=== PATIENT | male | born 1975 | race Caucasian/White ===

== ENCOUNTER 2018-01-11 05:15 | Observation (INO) | payer MEDICAID ==
[~2018-01-11] VITALS: Ht 180.3 cm; Wt 87.0 kg
[2018-01-11 06:19] LABS: BASOPHILS # (AUTO) 0.03 x10^3/uL (0-0.1); BASOPHILS % (AUTO) 0 % (0-1); EOSINOPHILS # (AUTO) 0.13 x10^3/uL (0-0.4); EOSINOPHILS % (AUTO) 2 % (1-7); LYMPHOCYTES # (AUTO) 2.11 x10^3/uL (1-3.4); LYMPHOCYTES % (AUTO) 24 % (22-44); MD NO; MEAN CORPUSCULAR HEMOGLOBIN 26.8 pg (27.5-34.5); MEAN CORPUSCULAR HGB CONC 32.8 g/dL (33.2-36.2); MEAN CORPUSCULAR VOLUME 81.7 fL (81-97); MEAN PLATELET VOLUME 6.5 fL (7.4-10.4); MONOCYTES # (AUTO) 0.83 x10^3/uL (0.2-0.8); MONOCYTES % (AUTO) 10 % (2-9); NEUTROPHILS # (AUTO) 5.56 x10^3/uL (1.8-6.8); NEUTROPHILS % (AUTO) 64 % (42-75); PLATELET COUNT 445 x10^3/uL (130-400); RED BLOOD COUNT 4.99 x10^6/uL (4.38-5.82); RED CELL DISTRIBUTION WIDTH 15.7 % (9.4-14.8)
[2018-01-11 06:30] LABS: ALBUMIN 3.7 g/dL (3.4-5.0); ANION GAP 7 mmol/L (5-15); CHLORIDE 108 mmol/L (98-107)
[2018-01-11 06:34] LABS: ALANINE AMINOTRANSFERASE 37 U/L (12-78); ALKALINE PHOSPHATASE 99 U/L (45-117); BILIRUBIN,TOTAL 0.5 mg/dL (0.2-1.0); CREATININE 1.07 mg/dL (0.7-1.3); TOTAL PROTEIN 7.9 g/dL (6.4-8.2)
[2018-01-11 06:36] LABS: SALICYLATE LEVEL < 1.7 mg/dL (2.8-20.0)
[2018-01-11 06:37] LABS: ACETAMINOPHEN < 2 mcg/mL (10-30)
[2018-01-11 10:43] LABS: MICROSCOPIC NOT IND
[2018-01-11 10:46] LABS: CULTURE INDICATED? NO
[2018-01-11 10:54] LABS: AMPHETAMINE SCREEN, URINE Positive (Negative); BARBITURATE SCREEN, URINE Negative (Negative); BENZODIAZEPINE SCREEN, URINE Negative (Negative); CANNABINOID SCREEN, URINE Positive (Negative); COCAINE SCREEN, URINE Negative (Negative); METHADONE SCREEN, URINE Negative (Negative); OPIATE SCREEN, URINE Negative (Negative)
[2018-01-11] MEDS ORDERED: ACETAMINOPHEN 325 MG TABLET PO PRN (11:30)
[2018-01-11] MEDS ORDERED: HALOPERIDOL 1 MG TABLET PO PRN (11:30)
[2018-01-11] MEDS ORDERED: BISACODYL 10 MG SUPP PR PRN (11:30)
[2018-01-11] MEDS ORDERED: DOCUSATE 100 MG CAPSULE PO PRN (11:30)
[2018-01-11] MEDS ORDERED: ZIPRASIDONE 20 MG INJ IM PRN (11:30)
[2018-01-11] MEDS ORDERED: TRAZODONE 50MG TABLET PO PRN (11:30)
[2018-01-11] MEDS ORDERED: ONDANSETRON ODT 4 MG PO PRN (11:30)
[2018-01-11] MEDS ORDERED: HALOPERIDOL 5 MG TABLET PO PRN (12:30)
[2018-01-11] MEDS ORDERED: LORazepam 1MG TABLET PO ONE (20:00)
[2018-01-11 20:01] VITALS: BP 128/84
[2018-01-12 08:27] VITALS: BP 130/70
[2018-01-12] MEDS: SENNA/DOCUSATE TABLET PO SCH (09:00)
[2018-01-12] MEDS ORDERED: PLEASE ENTER ALLERGIES MC SCH (13:30)
[2018-01-12] MEDS: BACLOFEN 10 MG TABLET PO SCH (20:26)
[2018-01-12 20:27] VITALS: BP 117/75
[2018-01-13] MEDS: BACLOFEN 10 MG TABLET PO SCH ×2 (08:00→19:56)
[2018-01-13 08:11] LABS: ANION GAP 6 mmol/L (5-15); CALCIUM 8.9 mg/dL (8.5-10.1); CHLORIDE 107 mmol/L (98-107); CREATININE 0.97 mg/dL (0.7-1.3)
[2018-01-13 08:14] VITALS: BP 125/86
[2018-01-13] MEDS: SENNA/DOCUSATE TABLET PO SCH (08:30)
[2018-01-13 19:44] VITALS: BP 127/88
[2018-01-14 07:49] VITALS: BP 143/89
[2018-01-14] MEDS: SENNA/DOCUSATE TABLET PO SCH (08:25)
[2018-01-14] MEDS: BACLOFEN 10 MG TABLET PO SCH ×2 (08:25→20:09)
[2018-01-14 19:53] VITALS: BP 134/81
[2018-01-15 08:12] VITALS: BP 95/60
[2018-01-15] MEDS: BACLOFEN 10 MG TABLET PO SCH ×2 (08:49→20:19)
[2018-01-15] MEDS: SENNA/DOCUSATE TABLET PO SCH (08:49)
[2018-01-15] MEDS: LORazepam 0.5MG TABLET PO PRN ×2 (17:16→17:18)
[2018-01-15 19:40] VITALS: BP 144/79
[2018-01-16] MEDS: BACLOFEN 10 MG TABLET PO SCH ×2 (07:45→20:32)
[2018-01-16] MEDS: SENNA/DOCUSATE TABLET PO SCH (07:50)
[2018-01-16 07:57] VITALS: BP 127/81
[2018-01-16] MEDS ORDERED: ZIPRASIDONE 20 MG INJ IM PRN (15:30)
[2018-01-16 20:57] VITALS: BP 130/89
[2018-01-17] MEDS: BACLOFEN 10 MG TABLET PO SCH ×2 (08:52→20:57)
[2018-01-17] MEDS: SENNA/DOCUSATE TABLET PO SCH (08:56)
[2018-01-17 16:00] VITALS: BP 129/86
[2018-01-17 20:54] VITALS: BP 110/77
[2018-01-18 07:30] VITALS: BP 147/92
[2018-01-18] MEDS: BACLOFEN 10 MG TABLET PO SCH ×2 (08:27→20:12)
[2018-01-18] MEDS: SENNA/DOCUSATE TABLET PO SCH (08:38)
[2018-01-18] MEDS ORDERED: TRAZODONE 50MG TABLET PO PRN (14:30)
[2018-01-18] MEDS ORDERED: LITHIUM CARBONATE 150 MG CAPSULE PO ONE (17:00)
[2018-01-18] MEDS ORDERED: LITHIUM CARBONATE 150 MG CAPSULE PO SCH (17:00)
[2018-01-18 19:45] VITALS: BP 126/79
[2018-01-19 07:30] VITALS: BP 142/98
[2018-01-19] MEDS: BACLOFEN 10 MG TABLET PO SCH ×2 (08:38→22:06)
[2018-01-19] MEDS: LITHIUM CARBONATE 300 MG TABLET.ER PO SCH ×3 (09:00→22:06)
[2018-01-19] MEDS: SENNA/DOCUSATE TABLET PO SCH (09:00)
[2018-01-19] MEDS ORDERED: ZIPRASIDONE 20 MG INJ IM ONE ×2 (13:29→13:30)
[2018-01-19 22:01] VITALS: BP 124/68
[2018-01-20 07:42] VITALS: BP 128/78
[2018-01-20] MEDS: SENNA/DOCUSATE TABLET PO SCH (09:06)
[2018-01-20] MEDS: LITHIUM CARBONATE 300 MG TABLET.ER PO SCH (09:08)
[2018-01-20] MEDS: BACLOFEN 10 MG TABLET PO SCH (09:12)
== END 2018-01-20 13:15 ==
LOC: ED 08:38 → EDIP 10:22 → 3E 16:51
PROVIDERS: ADMIT Hospitalist; ATTEND Hospitalist
DX: R45.851 Suicidal ideations (principal); F31.9 Bipolar disorder, unspecified; F20.9 Schizophrenia, unspecified; F12.10 Cannabis abuse, uncomplicated; E87.6 Hypokalemia; F15.90 Other stimulant use, unspecified, uncomplicated; D64.9 Anemia, unspecified; Z81.8 Family history of other mental and behavioral disorders
CPT/HCPCS: 36415; 80048; 80053; 80307; 80329; 81003; 85025; 93005; 96372; 99285; G0378; J3486; G0480

== ENCOUNTER 2018-01-25 06:06 | Emergency (ER) | payer MEDICAID ==
[~2018-01-25] VITALS: Ht 180.3 cm; Wt 90.3 kg
[2018-01-25 06:09] VITALS: BP 128/82
[2018-01-25 07:00] LABS: BASOPHILS # (AUTO) 0.03 x10^3/uL (0-0.1); BASOPHILS % (AUTO) 0 % (0-1); EOSINOPHILS # (AUTO) 0.06 x10^3/uL (0-0.4); EOSINOPHILS % (AUTO) 1 % (1-7); LYMPHOCYTES # (AUTO) 1.53 x10^3/uL (1-3.4); LYMPHOCYTES % (AUTO) 13 % (22-44); MD NO; MEAN CORPUSCULAR HGB CONC 33.4 g/dL (33.2-36.2); MEAN CORPUSCULAR VOLUME 80.7 fL (81-97); MEAN PLATELET VOLUME 6.5 fL (7.4-10.4); MONOCYTES # (AUTO) 1.01 x10^3/uL (0.2-0.8); MONOCYTES % (AUTO) 9 % (2-9); NEUTROPHILS # (AUTO) 8.89 x10^3/uL (1.8-6.8); NEUTROPHILS % (AUTO) 77 % (42-75); PLATELET COUNT 327 x10^3/uL (130-400); RED BLOOD COUNT 5.11 x10^6/uL (4.38-5.82); RED CELL DISTRIBUTION WIDTH 16.2 % (9.4-14.8)
== END 2018-01-25 08:28 | disposition home or self-care (01) ==
LOC: ED 07:40
DX: L03.116 Cellulitis of left lower limb (principal); B35.3 Tinea pedis; F17.210 Nicotine dependence, cigarettes, uncomplicated
CPT/HCPCS: 36415; 85025; 99285

== ENCOUNTER 2018-01-25 20:02 | Emergency (ER) | payer MEDICAID ==
[~2018-01-25] VITALS: Ht 180.3 cm; Wt 93.5 kg
[2018-01-25 20:04] VITALS: BP 153/97
== END 2018-01-25 20:52 | disposition home or self-care (01) ==
LOC: ED 20:45
DX: F15.10 Other stimulant abuse, uncomplicated (principal)
CPT/HCPCS: 99281

== ENCOUNTER 2019-01-21 05:07 | Emergency (ER) | payer MEDICAID ==
[~2019-01-21] VITALS: Ht 180.3 cm; Wt 92.8 kg
[2019-01-21 05:09] VITALS: BP 137/97
[2019-01-21] MEDS ORDERED: OLAN10TA3 PO (05:15)
[2019-01-21] MEDS ORDERED: BUPR-86 PO (05:15)
[2019-01-21] MEDS ORDERED: BUPR150T73 PO (05:15)
[2019-01-21] MEDS ORDERED: QUET300T5 PO (05:15)
[2019-01-21] MEDS ORDERED: LORazepam 1MG TABLET PO ONE (06:00)
[2019-01-21] MEDS ORDERED: LORazepam 1MG TABLET ONE (06:24)
[2019-01-21] MEDS ORDERED: OLANZAPINE 5 MG TABLET ONE (06:25)
[2019-01-21] MEDS ORDERED: OLANZAPINE 5 MG TABLET PO ONE (09:00)
== END 2019-01-21 06:35 | disposition home or self-care (01) ==
LOC: ED 06:25
DX: F31.9 Bipolar disorder, unspecified (principal)
CPT/HCPCS: 99283; 99284

== ENCOUNTER 2019-01-24 08:28 | Emergency (ER) | payer MEDICAID ==
[~2019-01-24] VITALS: Ht 180.3 cm; Wt 95.8 kg
[~2019-01-24 08:28] MED LIST: BUPR-86 PO; BUPR150T73 PO; OLAN10TA3 PO; QUET300T5 PO
[2019-01-24 08:34] VITALS: BP 141/79
--- NOTE | 2019-01-24 08:40 | NUR ---
PT REPORTED HE WAS GOING HURT SOMEONE BECAME VERBALLY AND PHYSICALY AGGRESSIVE IN TRIAGE SECURITY CALLED WHEN SECURITY ARRIVED PT GOT UP OUT OF THE CHAIR AND WALKED OUT SECURITY FOLLOWED PT OUT
== END 2019-01-24 08:54 | disposition left against medical advice (07) ==
LOC: ED 08:45
DX: Z53.21 Procedure and treatment not carried out due to patient leaving prior to being seen by health care provider (principal)

== ENCOUNTER 2019-01-26 19:42 | Emergency (ER) | payer MEDICAID ==
[~2019-01-26] VITALS: Ht 180.3 cm; Wt 90.0 kg
--- NOTE | 2019-01-26 19:58 | NUR ---
BIB [facility] FROM [facility] FOR DEPRESSION, ANXIETY, AND SUICIDAL THOUGHTS WITH NO PLAN. PT HAS HX OF BIPOLAR, CHF, DEPRESSION, SCHIZOPHRENIA. PT DOES NOT TAKE MEDICATIONS PRESCRIBED OF SEROQUEL, WELLBUTRIN, ZYPREXA. UPON ARRIVAL TO ROOM PHYSICIAN AT BEDSIDE AND UPON ASSESSMENT NOTICES BED BUG CRAWLING ON PTS BACK. PTS BELONGINGS PLACED IN BIOHAZARD BAG AND PT SENT TO SHOWER FOR DECON.
[2019-01-26 20:25] LABS: ALANINE AMINOTRANSFERASE 28 U/L (12-78); ALBUMIN 4.2 g/dL (3.4-5.0); ANION GAP 9 mmol/L (5-15); CALCIUM 9.6 mg/dL (8.5-10.1); CHLORIDE 107 mmol/L (98-107)
[2019-01-26 20:27] LABS: ACETAMINOPHEN < 2 mcg/mL (10-30); ALKALINE PHOSPHATASE 103 U/L (45-117); BASOPHILS # (AUTO) 0.03 x10^3/uL (0-0.1); BASOPHILS % (AUTO) 1 % (0-1); BILIRUBIN,TOTAL 0.2 mg/dL (0.2-1.0); EOSINOPHILS # (AUTO) 0.09 x10^3/uL (0-0.4); EOSINOPHILS % (AUTO) 2 % (1-7); LYMPHOCYTES # (AUTO) 1.73 x10^3/uL (1-3.4); LYMPHOCYTES % (AUTO) 29 % (22-44); MD NO; MEAN CORPUSCULAR HEMOGLOBIN 27.3 pg (27.5-34.5); MEAN CORPUSCULAR HGB CONC 32.9 g/dL (33.2-36.2); MEAN CORPUSCULAR VOLUME 82.9 fL (81-97); MEAN PLATELET VOLUME 7.2 fL (7.4-10.4); MONOCYTES # (AUTO) 0.77 x10^3/uL (0.2-0.8); MONOCYTES % (AUTO) 13 % (2-9); NEUTROPHILS % (AUTO) 56 % (42-75); PLATELET COUNT 386 x10^3/uL (130-400); RED CELL DISTRIBUTION WIDTH 15.4 % (9.4-14.8); SALICYLATE LEVEL < 1.7 mg/dL (2.8-20.0); TOTAL PROTEIN 8.6 g/dL (6.4-8.2)
--- NOTE | 2019-01-26 20:35 | NUR ---
PT HAS 1 BIOHAZARD BAG IN THE ROOM WITH BELONGINGS INSIDE.
--- NOTE | 2019-01-26 21:10 | NUR ---
SOC PAGED FOR PSYCH CONSULT
--- NOTE | 2019-01-26 21:11 | NUR ---
WHEN ASKING PT SUICIDE EVALUATION QUESTIONS PT STATES " HE HAS A BAD PAST OF DRUG ABUSE AND HAS BEEN IN PENITENTIARY AND IS TRYING TO GET INTO MINISTRY TO SHOW HIS KIDS HE HAS TURNED HIS LIFE AROUND BUT ITS HARD. I DON'T TAKE MY MEDS BECAUSE I HAVE A [place] ID AND I CAN'T GET MY MEDICATIONS HERE IN [place]. PT ADMITS TO SUICIDAL THOUGHTS AND WHEN ASKED IF HE HAS A PLAN HE SAYS HE WOULD ATTEMPT TO GET SHOT BY A INFORMATICS ANALYST OR SHOOT UP ANTIFREEZE."
--- NOTE | 2019-01-26 22:22 | NUR ---
NUMEROUS ATTEMPTS TO OBTAIN URINE. THIS NURSE KEEPS GIVING PT WATER TO DRINK. INFORMED PT WILL NOT PROCEED WITH PROCESS UNTIL WE RECIEVE URINE SAMPLE. VERBALIZES UNDERSTAIND. SITTER AT BEDSIDE.
--- NOTE | 2019-01-26 23:20 | NUR ---
PHYSICIAN AT BEDSIDE, INFORMED PT HE NEEDS TO GIVE A URINE SAMPLE OR HE WILL BE DISCHARGED.
--- NOTE | 2019-01-26 23:45 | NUR ---
URINE SAMPLE COLLECTED AND SENT. PHYSICIAN UPDATED.
[2019-01-27 00:03] LABS: AMPHETAMINE SCREEN, URINE Positive (Negative); BARBITURATE SCREEN, URINE Negative (Negative); BENZODIAZEPINE SCREEN, URINE Negative (Negative); CANNABINOID SCREEN, URINE Positive (Negative); COCAINE SCREEN, URINE Negative (Negative); METHADONE SCREEN, URINE Negative (Negative); OPIATE SCREEN, URINE Negative (Negative)
--- NOTE | 2019-01-27 00:30 | NUR ---
PT SLEEPING. SITTER AT BEDSIDE.
--- NOTE | 2019-01-27 01:07 | NUR ---
PT SLEEPING. SITTER AT BEDSIDE.
--- NOTE | 2019-01-27 02:40 | NUR ---
PT SLEEPING. WOKE PT UP TO SPEAK WITH TELEPSYCH PHYSICIAN.
--- NOTE | 2019-01-27 02:49 | NUR ---
PT UPSET AFTER SPEAKING WITH TELEPSYCH PHYSICIAN. STATES " HE IS NOT GOING TO GIVE ME ANY MEDS OR NOTHING, HE SAYS I'M PLAYING THE SYSTEM."
--- NOTE | 2019-01-27 03:43 | NUR ---
PT SLEEPING. SITTER AT BEDSIDE.
--- NOTE | 2019-01-27 04:53 | NUR ---
PT REMAINS SLEEPING WITH DOOR CLOSED. SITTER AT BEDSIDE.
--- NOTE | 2019-01-27 05:45 | NUR ---
PT GIVEN DISCHARGE INSTRUCTIONS AND RESOURCES TO [facility] AND [facility]. CLEAN CLOTHES AND FOOD GIVEN. PT VERBALIZES UNDERSTANDING TO INSTRUCTIONS.
[2019-01-27 05:46] VITALS: BP 126/75
== END 2019-01-27 05:48 | disposition home or self-care (01) ==
LOC: ED 20:00
DX: F32.9 Major depressive disorder, single episode, unspecified (principal); Z72.9 Problem related to lifestyle, unspecified; F20.9 Schizophrenia, unspecified; F17.200 Nicotine dependence, unspecified, uncomplicated
CPT/HCPCS: 36415; 80053; 80307; 85025; 99284